=== PATIENT | male | born 1975 | race Caucasian/White ===

== ENCOUNTER → 2016-08-06 | Day surgery (SDC) | payer BC ==
[~2016-08-06] MED LIST: ACYCLOVIR PO; ALBUTEROL17 GM INH; ALLEGRA PO; ALPRAZOLAM PO; CELEXA PO; COMBIVENT INH14.7 GM INH; CYMBALTA PO; FENTANYL1 EAC1 TD; FLEXERIL10 MG PO; HIGH POTENCY B1 TAB PO; MEDROL4 MG/DOSE- PO; MORPHINE IR PO; MS CONTIN PO; MULTIPLE VITAMI1 T12 PO; MULTIVITAMIN1 UDCAP PO; NAPROSYN500 MG PO; NAPROXEN PO; OXYCODONE HCL10 MG PO; PAXIL30 MG PO; PERCOCET 10/3251 TAB PO; PROAIR HFA8.5 GM IH; SEROQUEL PO; SEROQUEL50 M1 PO; SINGULAIR; SINGULAIR PO; STOOL SOFTENER; TRAZODONE PO; VITAMIN B122500 MCG SL; [UNRECOGNIZED DRUG - REMARK]
--- NOTE | ~2016-08-06 | OR ---
Unit #: [id number] #: [id number] Patient: STEFFEN BANSAL [id number] [address] [address] [id number] O MR#: [id number] NAME: STEFFEN BANSAL ROOM: Date of Procedure: 08/06/2016 Admission Date: 08/06/2016 Surgeon: Edil Lima M.D. : 1975 Attending Physician: Edil Lima M.D. Primary Care Physician: Chandrakant Baker M.D. OPERATIVE REPORT JOB NOTE: CC: [facility] PREOPERATIVE DIAGNOSES 1. Back pain. 2. Radiculopathy. 3. Herniated nucleus pulposus. POSTOPERATIVE DIAGNOSES 1. Back pain. 2. Radiculopathy. 3. Herniated nucleus pulposus. PROCEDURE PERFORMED Lumbar epidural steroid injection with intravenous sedation and fluoroscopic guidance for needle localization. INDICATIONS FOR PROCEDURE The patient is a 41-year-old male with previously mentioned diagnosis. 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 He has been treated with as needed epidural steroid injections in conjunction with medication management. Last injections were completed about 9 months ago. The patient did well. The pain returned though he had not come quite as early as usual to get a repeat injection with a repeat injection was done to decrease the pain, but not as well as usual, so we are going to proceed with a second injection today which is required at times in the past. DESCRIPTION OF PROCEDURE The patient was placed in the seated position. Standard monitors were applied. 2 mg of Versed were given for sedation and anxiolysis, which were adequate. Vital signs remained stable. Sterile prep and drape then of the lumbar area was performed. The skin then at the L4-L5 level was localized with 1% lidocaine. An 18-gauge [employer] needle was then advanced via loss of resistance technique and fluoroscopic guidance in toward the epidural space. After confirming proper positioning with fluoroscopy and radiographic contrast, a dose of 80 mg of Depo-Medrol and 4 mL of 0.125% bupivacaine were deposited. The patient tolerated the procedure otherwise well and was discharged to the recovery room in stable condition indication. Dictated by... Unit #: [id number] #: [id number] Patient: STEFFEN BANSAL M.D. LHP/sandor TD: 08/07/2016 00:47 JOB #: [id number] OPERATIVE REPORT X Edil Lima MD X PROCEDURE OPERATIVE NOTE
== END | disposition home or self-care (01) ==
LOC: CCSC 11:09
DX: M51.16 Intervertebral disc disorders with radiculopathy, lumbar region (principal)
CPT/HCPCS: J1040; J2250